=== PATIENT | female | born 1995 | race African-American/Black ===

== ENCOUNTER 2017-05-08 17:39 | Emergency (ER) | payer SELFPAY ==
[~2017-05-08] VITALS: Ht 167.6 cm; Wt 73.0 kg
[2017-05-08 23:16] VITALS: BP 112/64
== END 2017-05-08 23:18 | disposition home or self-care (01) ==
LOC: ER 21:20
DX: J10.1 Influenza due to other identified influenza virus with other respiratory manifestations (principal)
CPT/HCPCS: 71045; 87804; 99285